=== PATIENT | female | born 1945 | race American Indian/Alaskan Native ===

== ENCOUNTER 2018-01-11 12:05 | Emergency (ER) | payer MEDICARE ==
[2018-01-11] MEDS ORDERED: APRESOLINE ONE (12:22)
--- NOTE | 2018-01-11 12:29 | Cat Scan Report ---
CT HEAD WITHOUT CONTRAST: HISTORY: Neurological deficit, stroke. TECHNIQUE: Sequential 2.5mm CT images. COMPARISON: none. FINDINGS: Cerebral Parenchyma: An approximate 3.2 cm acute hemorrhage is identified in the expected location of the left putamen. There is mild intraventricular extension into the left lateral ventricle but no hydrocephalus. Mild edema surrounds the hemorrhage which compresses the left lateral ventricle but no significant midline shift is present. Left to right midline shift measures 3-4 mm at the level of the frontal horns. No mass or large area of acute ischemia is appreciated. Cerebellum: Within normal limits. Brainstem: Within normal limits. Sella: Normal. Extra-axial spaces: Normal. Basal Cisterns: Normal. Calvarium: Normal. Sinuses: Normal. Mastoid Air Cells: Normal. Visualized Orbits: Normal. IMPRESSION: Acute left basal ganglia hemorrhage with extension to the ventricular system as described. These findings were discussed with Dr. Peralta in the emergency department at 1213 hrs.
--- NOTE | 2018-01-11 12:30 | Emergency Department Report ---
ED Neuro Deficit HPI - General Stated Complaint: POSSIBLE STROKE Time Seen by Provider: 01/11/18 12:17 - History of Present Illness Initial Comments: History obtained from EMS. 20 minutes prior to arrival, she was found by her altered. She had a right-sided facial droop with right arm/leg weakness. This never happened before. The patient does have a history of hypertension and has not taken her medicine a year ago. She is not on blood thinners. - Related Data Allergies/Adverse Reactions: Allergies Allergy/AdvReac Type Severity Reaction Status Date / Time No Known Allergies Allergy Unverified 01/11/18 12:06 ED Review of Systems ROS: Stated complaint: POSSIBLE STROKE Other details as noted in HPI Comment: Unobtainable due to pts medical conditions ED Past Medical Hx - Past Medical History Hx Hypertension: Yes ED Neuro Physical Exam - General Limitations: Altered Mental Status General appearance: alert Suspected Stroke: No - Head Head exam: Present: atraumatic, normocephalic - Eye Eye exam: Present: normal appearance - ENT ENT exam: Present: mucous membranes moist - Neck Neck exam: Present: normal inspection - Respiratory Respiratory exam: Present: normal lung sounds bilaterally. Absent: respiratory distress - Cardiovascular Cardiovascular Exam: Present: regular rate, normal rhythm. Absent: systolic murmur, diastolic murmur, rubs, gallop - GI/Abdominal GI/Abdominal exam: Present: soft, normal bowel sounds - Extremities Exam Extremities exam: Present: normal inspection - Back Exam Back exam: Present: normal inspection - Neurological Exam Neurological exam: Present: alert, other (GCS 10 ([id number]), head and eyes deviated to the left, withdraws from pain in all extremities, nonverbal. Unable to assess NIHSS given the patient cannot follow commands and is nonverbal.) - NIHSS 1a. Level of Consciousness: alert 1b. LOC Questions: answers no questions correctly 1c. LOC Commands: performs no tasks correctly 2. Best Gaze: forced deviation 4. Facial Palsy: partial paralysis 5b. Motor Arm Right: some gravity effort 5a. Motor Arm Left: some gravity effort 6a. Motor Leg Left: some gravity effort 6b. Motor Leg Right: some gravity effort 8. Sensory: severe/total sensory loss 9. Best Language: mute/global aphasia - Psychiatric Psychiatric exam: Present: normal affect - Skin Skin exam: Present: warm, dry, intact, normal color. Absent: rash ED Course Vital Signs 01/11/18 01/11/18 01/11/18 12:24 12:30 12:47 Temperature 97.8 F Pulse Rate 76 84 Respiratory 20 18 16 Rate Blood Pressure 222/109 Blood Pressure 222/109 200/95 [Right] O2 Sat by Pulse 96 98 98 Oximetry - EKG Data -: EKG Interpreted by Me EKG shows normal: sinus rhythm, axis, intervals, QRS complexes, ST-T waves Rate: normal - Medical Decision Making 72-year-old female has no posterior hypertension that presents with altered mental status. CT head imaging shows evidence of a left putamen hemorrhagic stroke with ventricular hemorrhage. Mild mass effect seen. This is according to the radiologist. GCS is 10 on presentation. Unable to assess NIH stroke scale given the patient cannot follow commands and is nonverbal. She was hypertensive with systolic blood pressure 220 on presentation. Patient was given hydralazine and started on Cardene gtt. patient will be transferred to and remain for further management. Critical Care Time: Yes Critical care time in (mins) excluding proc time.: 35 Critical care attestation.: If time is entered above; I have spent that time in minutes in the direct care of this critically ill patient, excluding procedure time. ED Disposition Clinical Impression: Hemorrhagic stroke Disposition: DC/TX-70 ANOTHER TYPE HLTHCARE Is pt being admited?: No Condition: Stable
[2018-01-11] MEDS ORDERED: APRESOLINE IV ONE (12:49)
[2018-01-11] MEDS: ZOFRAN ODT PO ONE ×2 (12:50→13:36)
[2018-01-11] MEDS ORDERED: ZOFRAN ONE (12:56)
[2018-01-11] MEDS ORDERED: CARDENE 50 MG in NACL 0.9% 250ML 230 ML IV SCH (13:00)
[2018-01-11 13:10] VITALS: BP 139/80
[2018-01-11] MEDS ORDERED: ZOFRAN IV ONE (13:13)
[2018-01-11 13:19] LABS: Basophils % (Auto) 0.9 % (0.0-1.8); Eosinophils # (Auto) 0.1 K/mm3 (0.0-0.4); Eosinophils % (Auto) 2.6 % (0.0-4.3); Hemoglobin 12.5 gm/dl (10.1-14.3); Lymphocytes # (Auto) 2.5 K/mm3 (1.2-5.4); Lymphocytes % (Auto) 45.1 % (13.4-35.0); Mean Corpuscular HGB Conc 33 % (30-34); Mean Corpuscular Hemoglobin 31 pg (28-32); Mean Corpuscular Volume 93 fl (79-97); Monocytes # (Auto) 0.4 K/mm3 (0.0-0.8); Monocytes % (Auto) 6.3 % (0.0-7.3); Platelet Count 196 K/mm3 (140-440); Red Blood Count 4.09 M/mm3 (3.65-5.03); Red Cell Distribution Width 13.3 % (13.2-15.2)
[2018-01-11] MEDS ORDERED: ATIVAN ONE (13:22)
[2018-01-11 13:23] LABS: BUN/Creatinine Ratio 18; Blood Urea Nitrogen 18 mg/dL (7-17); Calcium 9.1 mg/dL (8.4-10.2); Hemolysis Index 15
[2018-01-11] MEDS ORDERED: DECADRON ONE (13:23)
[2018-01-11] MEDS ORDERED: KEPPRA 1,000 MG/NS 0.75% 100ML 1,000 MG/100 ML BAG IV ONE ×2 (13:23→13:33)
[2018-01-11] MEDS ORDERED: ATIVAN IV ONE (13:33)
[2018-01-11] MEDS ORDERED: DECADRON IV ONE (13:33)
[2018-01-11 13:36] LABS: INR 0.94 (0.87-1.13)
[2018-01-11 13:37] LABS: Partial Thromboplastin Time 26.2 Sec. (24.2-36.6)
== END 2018-01-11 13:35 | disposition other institution (70) ==
LOC: ED 12:05
DX: I62.9 Nontraumatic intracranial hemorrhage, unspecified (principal); I10 Essential (primary) hypertension
CPT/HCPCS: 36415; 70450; 80048; 84484; 85025; 85610; 85670; 85730; 93005; 93010; 96374; 96375; 99291; J0360; J1100; J1953; J2060; J2405; J7050; 96365

== ENCOUNTER 2019-07-22 19:39 | Inpatient (IN) | payer MEDICARE ==
--- NOTE | 2019-07-22 20:07 | Emergency Department Report ---
ED Neuro Deficit HPI - General Chief Complaint: Neuro Symptoms/Deficit Stated Complaint: POSS STROKE Time Seen by Provider: 07/22/19 19:45 Source: EMS Mode of arrival: Stretcher Limitations: Altered Mental Status - History of Present Illness Initial Comments: [facility] TeleStroke Metrics: LKW: 1500 Door Time: 1938 [facility] Contacted: 1929 [facility] at Bedside: 1933 NIHSS: 1951 Decision on Alteplase: Not to give as her last known well time is greater than 4.5 hours prior to her presentation and also due to her history of prior left basal ganglia intracranial hemorrhage. Interventional Candidate: Not a candidate as her symptoms are not consistent wit h a large vessel proximal occlusion. Chief Complaint: Altered mental status HPI: Asked to see this patient in emergent telemedicine consultation utilizing interactive audio and video technologies. ?Consultation was performed with assistance of ancillary / medical staff at bedside. Verbal consent to perform the examination with telemedicine was obtained. Patient agreed to proceed with the consultation for acute stroke protocol. 74-year-old -[place] female who comes to the emergency room by EMS as a stroke alert for changes in her speech and altered mental status. Patient with a history of a left basal ganglia intracranial hemorrhage in January 2018 due to uncontrolled hypertension. Blood pressure was 222/119 at the time and she was not taking her blood pressure medications. EMS reports that the patient has chronic right hemiparesis since that time. No family is currently at bedside. Apparently the patient was last known well by family at 3 PM today. They then found the patient with more slurred speech and slowness in his speech. She was also confused. She is oriented x1 to person only. Patient is currently able to follow commands. Patient is significantly weak still on the right side stemming from her previous hemorrhage. She is able to move the left side fine now. Head CT was negative. PMH: Hypertension and prior left basal ganglia hemorrhage in January 2018 with chronic right hemiparesis SOC: Negative x3. Patient is . FMH: Negative for stroke. ROS: 13 point review systems were reviewed with the patient, and are all negative with the exception of the aforementioned in the history of present illness. VS: Blood pressure 140/70, pulse 70, oxygen saturation 90%, weight 56.5 kg Exam: Patient is in no apparent distress. Patient appears as stated age. No obvious acute respiratory or cardiac distress. Patient is well groomed and well-nourished. 1a- LOC: Keenly responsive - 0 1b- LOC questions: Answers 1 question correctly - 1 1c- LOC commands- Performs both tasks correctly- 0 2- Gaze: Normal; no gaze paresis or gaze deviation - 0 3- Visual Avila: normal, no Visual field deficit - 0 4- Facial movements: right facial palsy - 2 5- Upper limb motor right arm drift - 4 6- Lower limb motor right leg drift - 4 7- Limb Coordination: absent ataxia - 0 8- Sensory: no sensory loss - 0 9- Language - No aphasia - 0 10- Speech - Mild dysarthria - 1 11- Neglect / Extinction - none found - 0 NIHSS score: 12 Diagnostic Data: CT of the head showed no acute intracranial process. Blood glucose 68 Medical Data Reviewed: 1.Data?reviewed include clinical labs, radiology,?and medical tests; 2.Tests?results discussed w/performing or interpreting physician; 3.Obtaining/reviewing old medical records; 4.Obtaining?case history from another source; 5.Independent?review of image, tracing, or specimen. Medical Decision Making: - Extensive number of diagnosis or management options are considered below. - Extensive amount of complex data reviewed. - High risk of complication and/or morbidity or mortality are associated with differential diagnostic considerations below. - There may be?uncertain?outcome and increased probability of prolonged functional impairment or high probability of severe prolonged functional impairment associated with some of these differential diagnosis. Differential Diagnosis for Stroke: 1.?Cardioembolic?stroke 2. Small vessel disease/lacune 3. Thromboembolic, [id number] mechanism 4.?Hypercoagulable?state-related infarct 5. Transient ischemic attack 6. Thrombotic mechanism, large artery disease Assessment: 1. Altered mental status 2. Prior left basal ganglia hypertensive hemorrhage in January 2018 with chronic r ight hemiparesis 3. Hypertension Recommendations: Patient can be admitted to the hospital for further work-up of her symptoms. Metabolic and infectious work-up per primary team. Can check MRI brain without contrast to rule out any acute intracranial process. Consult local neurology team to assist with evaluation and management. Consult PT, OT, and ST. Continue supportive care. Thank you for allowing [facility] to participate in the care of your patient. Please call me, Dr. Conley, with any questions at [phone]. Case discussed with the ER staff and Dr. Prince. Critical Care notation: I was called to see this critical patient emergently. I personally evaluated this critical patient for acute stroke evaluation, and determining their eligibility for IV Alteplase and interventional therapies. I have spent approximately 20 minutes with the patient, including time at bedside, time discussing the case with other physicians, reviewing plan of care, and time independently reviewing the records and scans. - Related Data Allergies/Adverse Reactions: Allergies Allergy/AdvReac Type Severity Reaction Status Date / Time No Known Allergies Allergy Verified 07/22/19 20:06 ED Review of Systems ROS: Stated complaint: POSS STROKE Other details as noted in HPI ED Past Medical Hx - Past Medical History Previous Medical History?: Yes Hx Hypertension: Yes Hx CVA: Yes (2016) Hx Heart Attack/AMI: No Hx Congestive Heart Failure: No Hx Diabetes: No Hx Deep Vein Thrombosis: No Hx Pulmonary Embolism: No Hx GERD: No Hx Liver Disease: No Hx Renal Disease: No Hx Sickle Cell Disease: No Hx Arthritis: No Hx Headaches / Migraines: No Hx Seizures: Yes Hx Kidney Stones: No Hx Psychiatric Treatment: No Hx Asthma: No Hx COPD: No Hx Tuberculosis: No Hx Dementia: No Hx HIV: No - Surgical History Hx Coronary Stent: No Hx Open Heart Surgery: No Hx Pacemaker: No Hx Internal Defibrillator: No Hx Cholecystectomy: No Hx Appendectomy: No Hx Breast Surgery: No - Social History Smoking Status: Unknown if ever smoked ED Neuro Physical Exam - General Limitations: Altered Mental Status Suspected Stroke: No ED Course Vital Signs 07/22/19 19:40 Temperature 98 F Pulse Rate 72 Respiratory 14 Rate Blood Pressure 137/88 [Right] O2 Sat by Pulse 98 Oximetry Critical care attestation.: If time is entered above; I have spent that time in minutes in the direct care of this critically ill patient, excluding procedure time. ED Disposition Clinical Impression: Altered mental state Disposition: 09 OP ADMIT IP TO THIS HOSP Is pt being admited?: Yes Does the pt Need Aspirin: No Condition: Stable
[2019-07-22 20:10] LABS: Basophils # (Auto) 0.1 K/mm3 (0.0-0.1); Eosinophils # (Auto) 0.2 K/mm3 (0.0-0.4); Hematocrit 39.4 % (30.3-42.9); Hemoglobin 13.6 gm/dl (10.1-14.3); Lymphocytes # (Auto) 4.2 K/mm3 (1.2-5.4); Mean Corpuscular HGB Conc 34 % (30-34); Mean Corpuscular Volume 93 fl (79-97); Monocytes # (Auto) 0.5 K/mm3 (0.0-0.8); Monocytes % (Auto) 5.6 % (0.0-7.3); Platelet Count 211 K/mm3 (140-440); Red Blood Count 4.24 M/mm3 (3.65-5.03); Red Cell Distribution Width 13.1 % (13.2-15.2)
--- NOTE | 2019-07-22 20:10 | Emergency Department Report ---
ED Neuro Deficit HPI - General Stated Complaint: POSS STROKE Time Seen by Provider: 07/22/19 19:45 Source: patient, family (friends), EMS Mode of arrival: Stretcher Limitations: Physical Limitation - History of Present Illness Initial Comments: 74-year-old female the past medical history left basal ganglia intracranial hemorrhage in 2018 causing chronic right-sided weakness, right facial droop, slurred speech, hypertension, history of seizures presents to Hospital with worsening slurred speech and right-sided weakness. Patient and is at the bedside feel like her speech is worse and she has worsening right-sided facial droop. Patient does not feel like her right-sided weakness is increased. Triage states that pt had left sided weakness. Triage nurse states EMS told them that she had left sided weakness at scene. pt does not have left sided weakness in ed. She does not have any pain. The friend saw patient with the symptoms at 6 PM and patient's thinks that her symptoms started at 3 PM. She also has some swelling to her gums on the right mandible gingiva and is scheduled to see a dentist. - Related Data Home Medications: Home Medications Medication Instructions Recorded Confirmed Last Taken Amantadine [Symmetrel] 100 mg PO DAILY 07/22/19 07/22/19 Unknown Amlodipine Besylate [Norvasc] 5 mg PO DAILY 07/22/19 07/22/19 Unknown AtorvaSTATin [Lipitor] 20 mg PO QHS 07/22/19 07/22/19 Unknown Donepezil [Aricept] 1 tab PO DAILY 07/22/19 07/22/19 Unknown Gabapentin [Neurontin] 100 mg PO Q8HR 07/22/19 07/22/19 Unknown levETIRAcetam [Keppra TAB] 1,000 mg PO BID 07/22/19 07/22/19 Unknown Allergies/Adverse Reactions: Allergies Allergy/AdvReac Type Severity Reaction Status Date / Time No Known Allergies Allergy Verified 07/22/19 20:06 ED Review of Systems ROS: Stated complaint: POSS STROKE Other details as noted in HPI Comment: All other systems reviewed and negative ED Past Medical Hx - Past Medical History Hx Hypertension: Yes Hx CVA: No Hx Heart Attack/AMI: No Hx Congestive Heart Failure: No Hx Diabetes: No Hx Deep Vein Thrombosis: No Hx Pulmonary Embolism: No Hx GERD: No Hx Liver Disease: No Hx Renal Disease: No Hx Sickle Cell Disease: No Hx Arthritis: No Hx Headaches / Migraines: No Hx Seizures: No Hx Kidney Stones: No Hx Psychiatric Treatment: No Hx Asthma: No Hx COPD: No Hx Tuberculosis: No Hx Dementia: No Hx HIV: No - Surgical History Hx Coronary Stent: No Hx Open Heart Surgery: No Hx Pacemaker: No Hx Internal Defibrillator: No Hx Cholecystectomy: No Hx Appendectomy: No Hx Breast Surgery: No - Social History Smoking Status: Unknown if ever smoked Substance Use Type: None - Medications Home Medications: Home Medications Medication Instructions Recorded Confirmed Last Taken Type Amantadine [Symmetrel] 100 mg PO DAILY 07/22/19 07/22/19 Unknown History Amlodipine Besylate [Norvasc] 5 mg PO DAILY 07/22/19 07/22/19 Unknown History AtorvaSTATin [Lipitor] 20 mg PO QHS 07/22/19 07/22/19 Unknown History Donepezil [Aricept] 1 tab PO DAILY 07/22/19 07/22/19 Unknown History Gabapentin [Neurontin] 100 mg PO Q8HR 07/22/19 07/22/19 Unknown History levETIRAcetam [Keppra TAB] 1,000 mg PO BID 07/22/19 07/22/19 Unknown History ED Neuro Physical Exam - General Suspected Stroke: Yes - NIHSS Assessment Interval: Baseline 1a. Level of Consciousness: alert/keenly responsive 1b. LOC Questions: answers 1 question correctly 1c. LOC Commands: performs tasks correctly 2. Best Gaze: normal 3. Visual: no visual loss 4. Facial Palsy: partial paralysis 5b. Motor Arm Right: no movement 5a. Motor Arm Left: no drift 6a. Motor Leg Left: no drift 6b. Motor Leg Right: no movement 7. Limb Ataxia: absent 8. Sensory: normal 9. Best Language: no aphasia 10. Dysarthria: mild/moderate dysarthria 11. Extinction/Inattention: no abnormality Total Score: 12 Stroke Severity: Moderate Stroke - Other Other exam information: General: No acute distress Head: Atraumatic Eyes: normal appearance ENT: Moist mucous membranes patient has to periapical swelling at the mandible gingiva around both at the canine and first premolar Neck: Normal appearance, no midline tenderness Chest: Clear to auscultation bilaterally CV: Regular rate and rhythm Abdomen: Soft, normal bowel sounds, nontender, nondistended, no rebound or guarding Back: Normal inspection Extremity: Normal inspection infection, full range of motion Neuro: see [facility] Psych: Appropriate behavior Skin: No rash ED Course Vital Signs 07/22/19 07/22/19 07/22/19 19:40 20:30 21:00 Temperature 98 F Pulse Rate 72 63 66 Respiratory 14 16 16 Rate Blood Pressure Blood Pressure 137/88 133/79 150/69 [Right] O2 Sat by Pulse 98 98 98 Oximetry 07/22/19 07/22/19 07/22/19 21:30 21:41 21:45 Temperature Pulse Rate 67 83 Respiratory 16 17 12 Rate Blood Pressure 132/79 Blood Pressure 133/80 [Right] O2 Sat by Pulse 98 97 99 Oximetry 07/22/19 22:00 Temperature Pulse Rate 64 Respiratory 12 Rate Blood Pressure 146/87 Blood Pressure [Right] O2 Sat by Pulse 98 Oximetry - Consultations Consultation #1: 07/22/19 see neuro consult note - Lab Data Result diagrams: 07/22/19 20:00 07/22/19 20:00 Lab Results 07/22/19 07/22/19 07/22/19 Range/Units 20:00 20:00 20:00 WBC 8.0 (4.5-11.0) K/mm3 RBC 4.24 (3.65-5.03) M/mm3 Hgb 13.6 (10.1-14.3) gm/dl Hct 39.4 (30.3-42.9) % MCV 93 (79-97) fl MCH 32 (28-32) pg MCHC 34 (30-34) % RDW 13.1 L (13.2-15.2) % Plt Count 211 (140-440) K/mm3 Lymph % (Auto) 52.0 H (13.4-35.0) % [place] % (Auto) 5.6 (0.0-7.3) % Eos % (Auto) 2.0 (0.0-4.3) % Baso % (Auto) 1.0 (0.0-1.8) % Lymph # 4.2 (1.2-5.4) K/mm3 [place] # 0.5 (0.0-0.8) K/mm3 Eos # 0.2 (0.0-0.4) K/mm3 Baso # 0.1 (0.0-0.1) K/mm3 Seg Neutrophils % 39.4 L (40.0-70.0) % Seg Neutrophils # 3.2 (1.8-7.7) K/mm3 PT 13.5 (12.2-14.9) Sec. INR 1.02 (0.87-1.13) APTT 26.6 (24.2-36.6) Sec. Sodium 143 (137-145) mmol/L Potassium 3.8 (3.6-5.0) mmol/L Chloride 106.8 (98-107) mmol/L Carbon Dioxide 22 (22-30) mmol/L Anion Gap 18 mmol/L BUN 12 (7-17) mg/dL Creatinine 0.7 (0.7-1.2) mg/dL Estimated GFR > 60 ml/min BUN/Creatinine Ratio 17 % Glucose 79 (65-100) mg/dL POC Glucose (70-105) Calcium 9.2 (8.4-10.2) mg/dL Troponin T < 0.010 (0.00-0.029) ng/mL 07/22/19 Range/Units 20:01 WBC (4.5-11.0) K/mm3 RBC (3.65-5.03) M/mm3 Hgb (10.1-14.3) gm/dl Hct (30.3-42.9) % MCV (79-97) fl MCH (28-32) pg MCHC (30-34) % RDW (13.2-15.2) % Plt Count (140-440) K/mm3 Lymph % (Auto) (13.4-35.0) % [place] % (Auto) (0.0-7.3) % Eos % (Auto) (0.0-4.3) % Baso % (Auto) (0.0-1.8) % Lymph # (1.2-5.4) K/mm3 [place] # (0.0-0.8) K/mm3 Eos # (0.0-0.4) K/mm3 Baso # (0.0-0.1) K/mm3 Seg Neutrophils % (40.0-70.0) % Seg Neutrophils # (1.8-7.7) K/mm3 PT (12.2-14.9) Sec. INR (0.87-1.13) APTT (24.2-36.6) Sec. Sodium (137-145) mmol/L Potassium (3.6-5.0) mmol/L Chloride (98-107) mmol/L Carbon Dioxide (22-30) mmol/L Anion Gap mmol/L BUN (7-17) mg/dL Creatinine (0.7-1.2) mg/dL Estimated GFR ml/min BUN/Creatinine Ratio % Glucose (65-100) mg/dL POC Glucose 68 L (70-105) Calcium (8.4-10.2) mg/dL Troponin T (0.00-0.029) ng/mL - EKG Data -: EKG Interpreted by Me EKG shows normal: sinus rhythm, ST-T waves (inf and lat inf t wave inv) Rate: normal - Radiology Data Radiology results: report reviewed CT BRAIN: 07/22/2019 INDICATION / CLINICAL INFORMATION: neuro deficits <6hrs or sx present upon awakening. COMPARISON: 01/11/2018 FINDINGS: BRAIN/INTRACRANIAL STRUCTURES: Unenhanced CT images of the brain were obtained and compared to the prior exam from 01/11/2018. The previously seen left parenchymal hemorrhage has resolved, now with a prominent area of encephalomalacia present in the left basal ganglia and centrum semiovale. There is no CT evidence of acute abnormality at this time. Underlying diffuse cerebral atrophy is present, which has progressed somewhat when compared to the prior exam. There is no CT evidence of acute hemorrhage or mass. There are no abnormal extra-axial fluid collecti ons. Prominent atherosclerotic vascular calcifications are noted. EXTRACRANIAL STRUCTURES: Unremarkable. IMPRESSION: No evidence of acute abnormality. Left sided subcortical encephalomalacia, corresponding to an area of acute hemorrhage seen on the prior CT from 01/11/2018. All CT scans at this location are performed using dose reduction to ALARA by means of automated exposure control. Discussed with Dr. Prince in the emergency department at 1915 hours - Medical Decision Making + worsening neuro deficts not tpa candiate pt passed swallow screen, asa provided see neuro consult pt to be admitted for futher workup - Differential Diagnosis cva, tia, encephalopathy - Thrombolytic Inclusion/Exclusion Thrombolytic Exclusion Criteria: Symptom Onset > 3 Hours Thrombolytic Contraindications: Hx of ICH/AVM/Aneurysms Critical Care Time: No Critical care attestation.: If time is entered above; I have spent that time in minutes in the direct care of this critically ill patient, excluding procedure time. ED Disposition Clinical Impression: Slurred speech, History of hemorrhagic cerebrovascular accident (CVA) with residual deficit Disposition: DC-09 OP ADMIT IP TO THIS HOSP Is pt being admited?: Yes Condition: Stable Time of Disposition: 21:13 ([place])
[2019-07-22 20:20] LABS: INR 1.02 (0.87-1.13); Partial Thromboplastin Time 26.6 Sec. (24.2-36.6)
--- NOTE | 2019-07-22 20:20 | Cat Scan Report ---
CT BRAIN: 07/22/2019 INDICATION / CLINICAL INFORMATION: neuro deficits <6hrs or sx present upon awakening. COMPARISON: 01/11/2018 FINDINGS: BRAIN/INTRACRANIAL STRUCTURES: Unenhanced CT images of the brain were obtained and compared to the pr ior exam from 01/11/2018. The previously seen left parenchymal hemorrhage has resolved, now with a prom inent area of encephalomalacia present in the left basal ganglia and centrum semiovale. There is no CT evidence of acute abnormality at this time. Underlying diffuse cerebral atrophy is pre sent, which has progressed somewhat when compared to the prior exam. There is no CT evidence of acute hemorrhage or mass. There are no abnormal extra-axial fluid collecti ons. Prominent atherosclerotic vascular calcifications are noted. EXTRACRANIAL STRUCTURES: Unremarkable. IMPRESSION: No evidence of acute abnormality. Left sided subcortical encephalomalacia, corresponding to an area of acute hemorrhage seen on the prior CT from 01/11/2018. All CT scans at this location are performed using dose reduction to ALARA by means of automated expos ure control. Discussed with Dr. Prince in the emergency department at 1915 hours Signer Name: Ole Berkowitz MD Signed: 07/22/2019 8:16 PM Workstation Name: [id number]
[2019-07-22 20:21] LABS: BUN/Creatinine Ratio 17; Blood Urea Nitrogen 12 mg/dL (7-17); Calcium 9.2 mg/dL (8.4-10.2); Hemolysis Index 48
[2019-07-22] MEDS ORDERED: ASPIRIN 325 MG TAB PO ONE (21:13)
[2019-07-22] MEDS ORDERED: PROMETHAZINE 25 MG RECT SUPP PR PRN (22:07)
[2019-07-22] MEDS ORDERED: ONDANSETRON 4 MG/2 ML INJ IV PRN ×2 (22:07)
[2019-07-22] MEDS ORDERED: ACETAMINOPHEN 325 MG TAB PO PRN ×2 (22:07)
[2019-07-22] MEDS ORDERED: METOCLOPRAMIDE 10 MG TAB PO PRN (22:07)
[2019-07-22] MEDS ORDERED: MORPHINE 2 MG/1 ML INJ IV PRN (22:07)
[2019-07-22] MEDS ORDERED: MAGNESIUM HYDROXIDE (MOM) ORAL LIQD UDC PO PRN ×2 (22:07)
--- NOTE | 2019-07-23 01:36 | History and Physical Report ---
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 Family members who were by the bedside indicates patient speech appeared more slurred today than usual. She was said to have had some left- sided weakness prior to reporting to the emergency room however they seem to have resolved upon arrival in the emergency room. She denies any fever or chills, no nausea vomiting but has had some mild headache. Upon arrival in the emergency room a CT scan of the head did not reveal new findings. She has been admitted to rule out a new CVA Past History Past Medical History: hypertension, stroke Social history: no significant social history Family history: no significant family history Medications and Allergies Allergies Allergy/AdvReac Type Severity Reaction Status Date / Time No Known Allergies Allergy Verified 07/22/19 20:06 Home Medications Medication Instructions Recorded Confirmed Last Taken Type Amantadine [Symmetrel] 100 mg PO DAILY 07/22/19 07/22/19 Unknown History Amlodipine Besylate [Norvasc] 5 mg PO DAILY 07/22/19 07/22/19 Unknown History AtorvaSTATin [Lipitor] 20 mg PO QHS 07/22/19 07/22/19 Unknown History Donepezil [Aricept] 1 tab PO DAILY 07/22/19 07/22/19 Unknown History Gabapentin [Neurontin] 100 mg PO Q8HR 07/22/19 07/22/19 Unknown History levETIRAcetam [Keppra TAB] 1,000 mg PO BID 07/22/19 07/22/19 Unknown History Active Meds: Active Medications Acetaminophen (Tylenol) 650 mg PO Q4H PRN PRN Reason: Pain, Mild (1-3) Aspirin (Aspirin) 325 mg PO QDAY AQUILES Bisacodyl (Dulcolax) 10 mg UT QDAY PRN PRN Reason: Constipation Magnesium Hydroxide (Milk Of Magnesia) 30 ml PO Q4H PRN PRN Reason: Constipation Metoclopramide HCl (Reglan) 10 mg PO Q6H PRN PRN Reason: Nausea And Vomiting Morphine Sulfate (Morphine) 2 mg IV Q4H PRN PRN Reason: Pain, Moderate (4-6) Ondansetron HCl (Zofran) 4 mg IV Q8H PRN PRN Reason: Nausea And Vomiting Promethazine HCl (Phenergan) 25 mg UT Q6H PRN PRN Reason: Nausea And Vomiting Sodium Chloride (Sodium Chloride Flush Syringe 10 Ml) 10 ml IV BID AQUILES Sodium Chloride (Sodium Chloride Flush Syringe 10 Ml) 10 ml IV PRN PRN PRN Reason: LINE FLUSH Review of Systems Neurological: weakness (Right-sided weakness) Exam - Constitutional Vitals: Temp Pulse Resp BP Pulse Ox 98 F 67 17 130/85 98 07/22/19 19:40 07/23/19 00:00 07/22/19 22:30 07/22/19 22:30 07/22/19 22:30 General appearance: Present: no acute distress, well-nourished, other (Right facial droop) - EENT Eyes: Present: PERRL, EOM intact ENT: hearing intact, clear oral mucosa, dentition normal - Neck Neck: Present: supple, normal ROM - Respiratory Respiratory effort: normal Respiratory: bilateral: CTA - Cardiovascular Rhythm: regular Heart Sounds: Present: S1 & S2 - Extremities Extremities: no ischemia, pulses intact, pulses symmetrical, No edema, Full ROM Peripheral Pulses: within normal limits - Abdominal General gastrointestinal: Present: soft, non-tender, non-distended - Integumentary Integumentary: Present: clear, warm, dry - Musculoskeletal Musculoskeletal: right sided weakness - Psychiatric Psychiatric: appropriate mood/affect, intact judgment & insight, cooperative - Neurologic Neurologic: other (Right hemiparesis) Results - Labs CBC & Chem 7: 07/22/19 20:00 07/22/19 20:00 Labs: Abnormal lab results 07/22/19 07/22/19 Range/Units 20:00 20:01 RDW 13.1 L (13.2-15.2) % Lymph % (Auto) 52.0 H (13.4-35.0) % Seg Neutrophils % 39.4 L (40.0-70.0) % POC Glucose 68 L (70-105) Assessment and Plan - Patient Problems (1) CVA (cerebral vascular accident) Current Visit: Yes Status: Acute Plan to address problem: Patient will be monitored on telemetry. Will place on daily aspirin and monitor neurological status. Patient has known history of hemorrhagic stroke in 2018 with right hemiparesis and some facial droop We will schedule patient for carotid Doppler and also MRI of the brain. We will request neurology evaluation and recommendation. (2) Hypertension Current Visit: Yes Status: Acute Plan to address problem: Blood pressure stable. We will continue routine home medications and monitor vital signs closely. (3) DVT prophylaxis Current Visit: Yes Status: Acute Plan to address problem: Patient placed on subcutaneous heparin (4) Full code status Current Visit: Yes Status: Acute
[2019-07-23 05:18] LABS: Basophils # (Auto) 0.1 K/mm3 (0.0-0.1); Basophils % (Auto) 1.1 % (0.0-1.8); Eosinophils # (Auto) 0.1 K/mm3 (0.0-0.4); Hematocrit 36.9 % (30.3-42.9); Hemoglobin 12.8 gm/dl (10.1-14.3); Lymphocytes # (Auto) 2.9 K/mm3 (1.2-5.4); Lymphocytes % (Auto) 45.3 % (13.4-35.0); Mean Corpuscular HGB Conc 35 % (30-34); Mean Corpuscular Volume 92 fl (79-97); Monocytes # (Auto) 0.3 K/mm3 (0.0-0.8); Monocytes % (Auto) 5.2 % (0.0-7.3); Platelet Count 217 K/mm3 (140-440); Red Blood Count 4.03 M/mm3 (3.65-5.03); Red Cell Distribution Width 13.2 % (13.2-15.2)
[2019-07-23 05:32] LABS: Partial Thromboplastin Time 28.8 Sec. (24.2-36.6)
[2019-07-23 05:35] LABS: INR 0.86 (0.87-1.13)
[2019-07-23] MEDS: GABAPENTIN 100 MG CAP PO SCH ×3 (05:57→22:50)
[2019-07-23] MEDS: HEPARIN 5,000 UNIT/1 ML VIAL SUB-Q SCH ×3 (05:57→22:50)
[2019-07-23 06:21] LABS: BUN/Creatinine Ratio 16; Blood Urea Nitrogen 11 mg/dL (7-17); Calcium 9.2 mg/dL (8.4-10.2); Chol/HDL Ratio 2.04 %; HDL Cholesterol 72 mg/dL (40-59); Hemolysis Index 9; LDL Cholesterol,Direct 69 mg/dL (50-130)
[2019-07-23] MEDS: levETIRAcetam 500 MG TAB PO SCH ×2 (10:11→22:50)
[2019-07-23] MEDS: ASPIRIN 325 MG TAB PO SCH (10:11)
[2019-07-23] MEDS: DONEPEZIL 10 MG TAB PO SCH (10:12)
[2019-07-23] MEDS: amLODIPine 5 MG TAB PO SCH (10:12)
--- NOTE | 2019-07-23 12:20 | Progress Note ---
Subjective Date of service: 07/23/19 Interval history: patient 's CT evaluated and went over the scan rather large and severe left hemisphere chroic infarct with severe volume loss from massive stroke likely massive MCA stroke await MRI the ED nores were reviewed Objective - Vital Sign Vital Signs - 12hr 07/23/19 07/23/19 07/23/19 01:47 04:41 08:48 Temperature 98.3 F 98.4 F Pulse Rate 60 81 Pulse Rate [ 64 Apical] Respiratory 18 18 18 Rate Blood Pressure 132/78 113/80 O2 Sat by Pulse 97 95 Oximetry 07/23/19 10:12 Temperature Pulse Rate 81 Pulse Rate [ Apical] Respiratory Rate Blood Pressure 113/80 O2 Sat by Pulse Oximetry - Laboratory Findings CBC and BMP: 07/23/19 04:34 07/23/19 04:34 Abnormal Lab Findings: Abnormal Labs 07/22/19 07/22/19 07/23/19 20:00 20:01 04:34 MCHC 35 H RDW 13.1 L Lymph % (Auto) 52.0 H 45.3 H Seg Neutrophils % 39.4 L PT INR POC Glucose 68 L HDL Cholesterol 07/23/19 07/23/19 04:34 04:34 MCHC RDW Lymph % (Auto) Seg Neutrophils % PT 11.8 L INR 0.86 L POC Glucose HDL Cholesterol 72 H
--- NOTE | 2019-07-23 13:12 | Progress Note ---
Assessment and Plan Assessment and plan: 74-year-old -[place] female with known history of hemorrhagic stroke about a year ago with residual right-sided weakness was brought into the emergency room today for speech difficulty and what appeared to be left-sided weakness . Family members who were by the bedside indicates patient speech a ppeared more slurred today than usual. She was said to have had some left-sided weakness prior to reporting to the emergency room however they seem to have resolved upon arrival in the emergency room. She denies any fever or chills, no nausea vomiting but has had some mild headache. Upon arrival in the emergency room a CT scan of the head did not reveal new findings. She has been admitted to rule out a new CVA (1) CVA (cerebral vascular accident) Current Visit: Yes Status: Acute Plan to address problem: Continue supportive care right facial droop appears to have improved Dysarthria still persist Resume aspirin and statin therapy await neurology evaluation monitor neurological status. PT and OT Patient has known history of hemorrhagic stroke in 2018 with right hemiparesis and some facial droop We will schedule patient for carotid Doppler and also MRI of the brain. We will request neurology evaluation and recommendation. (2) Hypertension Current Visit: Yes Status: Acute Plan to address problem: Blood pressure stable. We will continue routine home medications and monitor vital signs closely. (3) DVT prophylaxis Current Visit: Yes Status: Acute Plan to address problem: Patient placed on subcutaneous heparin (4) Full code status Current Visit: Yes Status: Acute History Interval history: Patient seen and examined, no acute distress. Tolerating PO intake. Per rn progressive care patient is none ambulatory but pivots from chair to chair, she has been noting to have contracture on the right upper ext more than normal. Patient still has dysphgia, although she has dysphasia at baseline the caregiver states that the dysphasia at this time is still not at her baseline. Hospitalist Physical - Physical exam Narrative exam: VITAL SIGNS: Reviewed. GENERAL: The patient appears normally developed, Vital signs as documented. HEAD: No signs of head trauma. EYES: Pupils are equal. Extraocular motions intact. EARS: Hearing grossly intact. MOUTH: Oropharynx is normal. NECK: No adenopathy, no JVD. CHEST: Chest with clear breath sounds bilaterally. No wheezes, rales, or rhonchi. CARDIAC: Regular rate and rhythm. S1 and S2, without murmurs, gallops, or rubs. VASCULAR: No Edema. Peripheral pulses normal and equal in all extremities. ABDOMEN: Soft, non tender and non distended. No rebound or guarding, and no masses palpated. Bowel Sounds normal. MUSCULOSKELETAL: Limited range of motion of all major joints. Extremities without clubbing, cyanosis or edema. NEUROLOGIC EXAM: Alert and oriented x 3 No focal sensory or strength deficits. Dysarthria. Follows commands. PSYCHIATRIC: Mood normal. SKIN: detial exam as documented in skin assessment - Constitutional Vitals: Temp Pulse Resp BP Pulse Ox 98.4 F 81 18 113/80 95 07/23/19 08:48 07/23/19 10:12 07/23/19 08:48 07/23/19 10:12 07/23/19 08:48 General appearance: Present: no acute distress, well-nourished, other (Right facial droop) Results - Labs CBC & Chem 7: 07/23/19 04:34 07/23/19 04:34 Labs: Laboratory Last Values WBC 6.5 K/mm3 (4.5-11.0) 07/23/19 04:34 RBC 4.03 M/mm3 (3.65-5.03) 07/23/19 04:34 Hgb 12.8 gm/dl (10.1-14.3) 07/23/19 04:34 Hct 36.9 % (30.3-42.9) 07/23/19 04:34 MCV 92 fl (79-97) 07/23/19 04:34 MCH 32 pg (28-32) 07/23/19 04:34 MCHC 35 % (30-34) H 07/23/19 04:34 RDW 13.2 % (13.2-15.2) 07/23/19 04:34 Plt Count 217 K/mm3 (140-440) 07/23/19 04:34 Lymph % (Auto) 45.3 % (13.4-35.0) H 07/23/19 04:34 [place] % (Auto) 5.2 % (0.0-7.3) 07/23/19 04:34 Eos % (Auto) 2.0 % (0.0-4.3) 07/23/19 04:34 Baso % (Auto) 1.1 % (0.0-1.8) 07/23/19 04:34 Lymph # 2.9 K/mm3 (1.2-5.4) 07/23/19 04:34 [place] # 0.3 K/mm3 (0.0-0.8) 07/23/19 04:34 Eos # 0.1 K/mm3 (0.0-0.4) 07/23/19 04:34 Baso # 0.1 K/mm3 (0.0-0.1) 07/23/19 04:34 Seg Neutrophils % 46.4 % (40.0-70.0) 07/23/19 04:34 Seg Neutrophils # 3.0 K/mm3 (1.8-7.7) 07/23/19 04:34 PT 11.8 Sec. (12.2-14.9) L 07/23/19 04:34 INR 0.86 (0.87-1.13) L 07/23/19 04:34 APTT 28.8 Sec. (24.2-36.6) 07/23/19 04:34 Thrombin Time 16.0 Sec. (15.1-19.6) 07/22/19 20:00 Sodium 144 mmol/L (137-145) 07/23/19 04:34 Potassium 3.6 mmol/L (3.6-5.0) 07/23/19 04:34 Chloride 105.3 mmol/L (98-107) 07/23/19 04:34 Carbon Dioxide 22 mmol/L (22-30) 07/23/19 04:34 Anion Gap 20 mmol/L 07/23/19 04:34 BUN 11 mg/dL (7-17) 07/23/19 04:34 Creatinine 0.7 mg/dL (0.7-1.2) 07/23/19 04:34 Estimated GFR > 60 ml/min 07/23/19 04:34 BUN/Creatinine Ratio 16 % 07/23/19 04:34 Glucose 87 mg/dL (65-100) 07/23/19 04:34 POC Glucose 68 (70-105) L 07/22/19 20:01 Calcium 9.2 mg/dL (8.4-10.2) 07/23/19 04:34 Troponin T < 0.010 ng/mL (0.00-0.029) 07/22/19 20:00 Triglycerides 77 mg/dL (2-149) 07/23/19 04:34 Cholesterol 147 mg/dL (50-199) 07/23/19 04:34 LDL Cholesterol Direct 69 mg/dL (50-130) 07/23/19 04:34 HDL Cholesterol 72 mg/dL (40-59) H 07/23/19 04:34 Cholesterol/HDL Ratio 2.04 % 07/23/19 04:34 Active Medications - Current Medications Current Medications: Generic Name Dose Route Start Last Admin Trade Name Freq PRN Reason Stop Dose Admin Acetaminophen 650 mg 07/22/19 22:07 Tylenol PO Q4H PRN Pain, Mild (1-3) Amantadine HCl 100 mg 07/23/19 10:00 07/23/19 12:20 Symmetrel PO 100 mg DAILY AQUILES Administration Amlodipine Besylate 5 mg 07/23/19 10:00 07/23/19 10:12 Amlodipine PO 5 mg DAILY AQUILES Administration Aspirin 325 mg 07/23/19 10:00 07/23/19 10:11 Aspirin PO 325 mg QDAY AQUILES Administration Atorvastatin Calcium 40 mg 07/23/19 22:00 Lipitor PO QHS AQUILES Bisacodyl 10 mg 07/22/19 22:07 Dulcolax ME QDAY PRN Constipation Donepezil HCl 10 mg 07/23/19 10:00 07/23/19 10:12 Aricept PO 10 mg DAILY AQUILES Administration Gabapentin 100 mg 07/23/19 06:00 07/23/19 05:57 Gabapentin PO 100 mg Q8HR AQUILES Administration Heparin Sodium (Porcine) 5,000 unit 07/23/19 06:00 07/23/19 05:57 Heparin SUB-Q 5,000 unit Q8HR AQUILES Administration Levetiracetam 1,000 mg 07/23/19 10:00 07/23/19 10:11 Keppra PO 1,000 mg BID AQUILES Administration Magnesium Hydroxide 30 ml 07/22/19 22:07 Milk Of Magnesia PO Q4H PRN Constipation Metoclopramide HCl 10 mg 07/22/19 22:07 Reglan PO Q6H PRN Nausea And Vomiting Morphine Sulfate 2 mg 07/22/19 22:07 Morphine IV Q4H PRN Pain, Moderate (4-6) Ondansetron HCl 4 mg 07/22/19 22:07 Zofran IV Q8H PRN Nausea And Vomiting Promethazine HCl 25 mg 07/22/19 22:07 Phenergan ME Q6H PRN Nausea And Vomiting Sodium Chloride 10 ml 07/23/19 10:00 07/23/19 10:11 Sodium Chloride Flush Syringe 10 Ml IV 10 ml BID AQUILES Administration Sodium Chloride 10 ml 07/22/19 22:07 Sodium Chloride Flush Syringe 10 Ml IV PRN PRN LINE FLUSH
[2019-07-24] MEDS: HEPARIN 5,000 UNIT/1 ML VIAL SUB-Q SCH ×3 (05:40→21:59)
[2019-07-24] MEDS: GABAPENTIN 100 MG CAP PO SCH ×3 (05:41→21:59)
--- NOTE | 2019-07-24 09:15 | Progress Note ---
Subjective Date of service: 07/24/19 Interval history: see my note about large old infarct on the CT this is stable see no bleed or edema MRI pending report on ECHO not as yet back Objective - Vital Sign Vital Signs - 12hr 07/23/19 07/23/19 07/24/19 22:00 23:32 00:00 Temperature 98.0 F Pulse Rate 70 70 Pulse Rate [ Apical] Respiratory 18 Rate Blood Pressure 121/77 O2 Sat by Pulse 95 98 Oximetry 07/24/19 07/24/19 07/24/19 01:00 04:02 08:12 Temperature 98.0 F Pulse Rate 90 Pulse Rate [ 80 Apical] Respiratory 18 18 22 Rate Blood Pressure 112/73 O2 Sat by Pulse 100 96 98 Oximetry 07/24/19 07/24/19 08:25 08:57 Temperature 98.6 F Pulse Rate 75 76 Pulse Rate [ Apical] Respiratory 18 Rate Blood Pressure 110/75 O2 Sat by Pulse 95 Oximetry - Laboratory Findings CBC and BMP: 07/23/19 04:34 07/23/19 04:34 Abnormal Lab Findings: Abnormal Labs 07/22/19 07/22/19 07/23/19 20:00 20:01 04:34 MCHC 35 H RDW 13.1 L Lymph % (Auto) 52.0 H 45.3 H Seg Neutrophils % 39.4 L PT INR POC Glucose 68 L HDL Cholesterol 07/23/19 07/23/19 04:34 04:34 MCHC RDW Lymph % (Auto) Seg Neutrophils % PT 11.8 L INR 0.86 L POC Glucose HDL Cholesterol 72 H
[2019-07-24] MEDS: DONEPEZIL 10 MG TAB PO SCH (09:45)
[2019-07-24] MEDS: levETIRAcetam 500 MG TAB PO SCH ×2 (09:45→21:59)
[2019-07-24] MEDS: ASPIRIN 325 MG TAB PO SCH (09:45)
[2019-07-24] MEDS: amLODIPine 5 MG TAB PO SCH (09:45)
--- NOTE | 2019-07-24 15:13 | Progress Note ---
Assessment and Plan Assessment and plan: 74-year-old -[place] female with known history of hemorrhagic stroke about a year ago with residual right-sided weakness was brought into the emergency room today for speech difficulty and what appeared to be left-sided weakness . Family members who were by the bedside indicates patient speech a ppeared more slurred today than usual. She was said to have had some left-sided weakness prior to reporting to the emergency room however they seem to have resolved upon arrival in the emergency room. She denies any fever or chills, no nausea vomiting but has had some mild headache. Upon arrival in the emergency room a CT scan of the head did not reveal new findings. She has been admitted to rule out a new CVA awaiting MRI AND ECHO AND PT cONTINUE ASA AND STATIN THERAPY, Will adjust meds in new stroke is noted. (1) CVA (cerebral vascular accident) Current Visit: Yes Status: Acute Plan to address problem: Continue supportive care right facial droop appears to have improved Dysarthria still persist Resume aspirin and statin therapy await neurology evaluation monitor neurological status. PT and OT Patient has known history of hemorrhagic stroke in 2018 with right hemiparesis and some facial droop We will schedule patient for carotid Doppler and also MRI of the brain. We will request neurology evaluation and recommendation. (2) Hypertension Current Visit: Yes Status: Acute Plan to address problem: Blood pressure stable. We will continue routine home medications and monitor vital signs closely. (3) DVT prophylaxis Current Visit: Yes Status: Acute Plan to address problem: Patient placed on subcutaneous heparin (4) Full code status Current Visit: Yes Status: Acute History Interval history: Patient seen and examined, no acute distress. No new complaint Hospitalist Physical - Physical exam Narrative exam: VITAL SIGNS: Reviewed. GENERAL: The patient appears normally developed, Vital signs as documented. HEAD: No signs of head trauma. EYES: Pupils are equal. Extraocular motions intact. EARS: Hearing grossly intact. MOUTH: Oropharynx is normal. NECK: No adenopathy, no JVD. CHEST: Chest with clear breath sounds bilaterally. No wheezes, rales, or rhonchi. CARDIAC: Regular rate and rhythm. S1 and S2, without murmurs, gallops, or rubs. VASCULAR: No Edema. Peripheral pulses normal and equal in all extremities. ABDOMEN: Soft, non tender and non distended. No rebound or guarding, and no masses palpated. Bowel Sounds normal. MUSCULOSKELETAL: Limited range of motion of all major joints. Extremities without clubbing, cyanosis or edema. NEUROLOGIC EXAM: Alert and oriented x 3 No focal sensory or strength deficits. Dysarthria. Follows commands. PSYCHIATRIC: Mood normal. SKIN: detial exam as documented in skin assessment - Constitutional Vitals: Temp Pulse Resp BP Pulse Ox 98.6 F 76 18 110/75 97 07/24/19 08:25 07/24/19 08:57 07/24/19 08:25 07/24/19 08:25 07/24/19 09:19 General appearance: Present: no acute distress, well-nourished, other (Right facial droop) Results - Labs CBC & Chem 7: 07/23/19 04:34 07/23/19 04:34 Labs: Laboratory Last Values WBC 6.5 K/mm3 (4.5-11.0) 07/23/19 04:34 RBC 4.03 M/mm3 (3.65-5.03) 07/23/19 04:34 Hgb 12.8 gm/dl (10.1-14.3) 07/23/19 04:34 Hct 36.9 % (30.3-42.9) 07/23/19 04:34 MCV 92 fl (79-97) 07/23/19 04:34 MCH 32 pg (28-32) 07/23/19 04:34 MCHC 35 % (30-34) H 07/23/19 04:34 RDW 13.2 % (13.2-15.2) 07/23/19 04:34 Plt Count 217 K/mm3 (140-440) 07/23/19 04:34 Lymph % (Auto) 45.3 % (13.4-35.0) H 07/23/19 04:34 [place] % (Auto) 5.2 % (0.0-7.3) 07/23/19 04:34 Eos % (Auto) 2.0 % (0.0-4.3) 07/23/19 04:34 Baso % (Auto) 1.1 % (0.0-1.8) 07/23/19 04:34 Lymph # 2.9 K/mm3 (1.2-5.4) 07/23/19 04:34 [place] # 0.3 K/mm3 (0.0-0.8) 07/23/19 04:34 Eos # 0.1 K/mm3 (0.0-0.4) 07/23/19 04:34 Baso # 0.1 K/mm3 (0.0-0.1) 07/23/19 04:34 Seg Neutrophils % 46.4 % (40.0-70.0) 07/23/19 04:34 Seg Neutrophils # 3.0 K/mm3 (1.8-7.7) 07/23/19 04:34 PT 11.8 Sec. (12.2-14.9) L 07/23/19 04:34 INR 0.86 (0.87-1.13) L 07/23/19 04:34 APTT 28.8 Sec. (24.2-36.6) 07/23/19 04:34 Thrombin Time 16.0 Sec. (15.1-19.6) 07/22/19 20:00 Sodium 144 mmol/L (137-145) 07/23/19 04:34 Potassium 3.6 mmol/L (3.6-5.0) 07/23/19 04:34 Chloride 105.3 mmol/L (98-107) 07/23/19 04:34 Carbon Dioxide 22 mmol/L (22-30) 07/23/19 04:34 Anion Gap 20 mmol/L 07/23/19 04:34 BUN 11 mg/dL (7-17) 07/23/19 04:34 Creatinine 0.7 mg/dL (0.7-1.2) 07/23/19 04:34 Estimated GFR > 60 ml/min 07/23/19 04:34 BUN/Creatinine Ratio 16 % 07/23/19 04:34 Glucose 87 mg/dL (65-100) 07/23/19 04:34 POC Glucose 68 (70-105) L 07/22/19 20:01 Calcium 9.2 mg/dL (8.4-10.2) 07/23/19 04:34 Troponin T < 0.010 ng/mL (0.00-0.029) 07/22/19 20:00 Triglycerides 77 mg/dL (2-149) 07/23/19 04:34 Cholesterol 147 mg/dL (50-199) 07/23/19 04:34 LDL Cholesterol Direct 69 mg/dL (50-130) 07/23/19 04:34 HDL Cholesterol 72 mg/dL (40-59) H 07/23/19 04:34 Cholesterol/HDL Ratio 2.04 % 07/23/19 04:34 Active Medications - Current Medications Current Medications: Generic Name Dose Route Start Last Admin Trade Name Freq PRN Reason Stop Dose Admin Acetaminophen 650 mg 07/22/19 22:07 Tylenol PO Q4H PRN Pain, Mild (1-3) Amantadine HCl 100 mg 07/23/19 10:00 07/24/19 09:45 Symmetrel PO 100 mg DAILY AQUILES Administration Amlodipine Besylate 5 mg 07/23/19 10:00 07/24/19 09:45 Amlodipine PO 5 mg DAILY AQUILES Administration Aspirin 325 mg 07/23/19 10:00 07/24/19 09:45 Aspirin PO 325 mg QDAY AQUILES Administration Atorvastatin Calcium 40 mg 07/23/19 23:15 07/23/19 23:12 Lipitor PO 40 mg QHS AQUILES Administration Bisacodyl 10 mg 07/22/19 22:07 Dulcolax AR QDAY PRN Constipation Donepezil HCl 10 mg 07/23/19 10:00 07/24/19 09:45 Aricept PO 10 mg DAILY AQUILES Administration Gabapentin 100 mg 07/23/19 06:00 07/24/19 13:20 Gabapentin PO 100 mg Q8HR AQUILES Administration Heparin Sodium (Porcine) 5,000 unit 07/23/19 06:00 07/24/19 13:19 Heparin SUB-Q 5,000 unit Q8HR AQUILES Administration Levetiracetam 1,000 mg 07/23/19 10:00 07/24/19 09:45 Keppra PO 1,000 mg BID AQUILES Administration Magnesium Hydroxide 30 ml 07/22/19 22:07 Milk Of Magnesia PO Q4H PRN Constipation Metoclopramide HCl 10 mg 07/22/19 22:07 Reglan PO Q6H PRN Nausea And Vomiting Morphine Sulfate 2 mg 07/22/19 22:07 Morphine IV Q4H PRN Pain, Moderate (4-6) Ondansetron HCl 4 mg 07/22/19 22:07 Zofran IV Q8H PRN Nausea And Vomiting Promethazine HCl 25 mg 07/22/19 22:07 Phenergan AR Q6H PRN Nausea And Vomiting Sodium Chloride 10 ml 07/23/19 10:00 07/24/19 09:46 Sodium Chloride Flush Syringe 10 Ml IV 10 ml BID AQUILES Administration Sodium Chloride 10 ml 07/22/19 22:07 Sodium Chloride Flush Syringe 10 Ml IV PRN PRN LINE FLUSH Nutrition/Malnutrition Assess - Dietary Evaluation Nutrition/Malnutrition Findings: Nutrition Notes Start: 07/23/19 13:06 Freq: Status: Active Protocol: Document 07/23/19 13:06 (Rec: 07/23/19 13:16 [id number]) Nutrition Notes Need for 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 R-sided weakness Labs/Tests Reviewed Pertinent Medications Reviewed Height 5 ft 2 in Weight 56.5 kg Usual Body Weight 59 kg [place] Body Weight (kg) 50.00 BMI 22.8 Subjective/Other Information Md consult for diet education and skin risk screen. Eddie score = 16. Pt friend was in room at visit feeding pt. Pt had consumed 50% of meal so far. Pt friend stated pt ate bfast this morning but was unsure of how much she ate, as she had not arrived yet. Pt eats 3 meals a day, but does not consume large quantities. Pt friend says pt does not have any wounds at the moment, but has in the past. RD provided education on low-na diet. Pt friend says pt usually does not eat high- sodium foods except for when she goes out to eat. Burn Absent Trauma Absent GI Symptoms None Current % PO Fair (50-74%) Minimum of two criteria No physical signs of malnutrition #1 Nutrition Diagnosis Increased nutrient needs ( specify in comment below) Comments: Protein Etiology immobility, h/o wounds As Evidenced by Signs and Symptoms Pt friend stated pt has had wounds frequently in the past Is patient on ventilator? No Is Patient Ambulatory and/or Out of Bed No REE-(Brilliant-St. Jeor-confined to bed) [phone] Calculation Used for Recommendations Brilliant-St Jeor Additional Notes Pro needs: 57-68g/day (1-1.2g/ kg BW) Fluid: 1 ml/kcal Nutrition Intervention Change Diet Order: continue cardiac diet Teaching Recipient Patient,Primary Caregiver Learning Readiness Good Teaching Methods Discussion,Handout Response to Teaching Verbalize understanding Education Handouts Provided AND's Low-Sodium Diet handout Barriers to Learning Cognitive/Verbal,Cognitive/ Written,Physical RD phone number provided Yes Patient aware of follow up options Yes Goal #1 Pt to consume at least 75% of energy and protein needs via PO intakes Goal #2 Pt to follow low-na diet Anticipated Discharge Needs: Low-na diet Follow-Up By: 07/26/19 Additional Comments F/u for stable intakes, need for ONS
[2019-07-25] MEDS: HEPARIN 5,000 UNIT/1 ML VIAL SUB-Q SCH ×2 (06:38→14:51)
[2019-07-25] MEDS: GABAPENTIN 100 MG CAP PO SCH ×2 (06:38→14:51)
[2019-07-25] MEDS: DONEPEZIL 10 MG TAB PO SCH (09:29)
[2019-07-25] MEDS: ASPIRIN 325 MG TAB PO SCH (09:29)
[2019-07-25] MEDS: levETIRAcetam 500 MG TAB PO SCH (09:29)
[2019-07-25] MEDS: amLODIPine 5 MG TAB PO SCH (09:35)
--- NOTE | 2019-07-25 15:33 | Vascular Lab Report ---
"DUPLEX DOPPLER ULTRASOUND CAROTID, BILATERAL INDICATION: stroke. FINDINGS: RIGHT CAROTID: Mild plaque Right CCA velocity: 69 cm/sec. Right ICA peak systolic velocity: 73 cm/sec. ICA/CCA PSV Ratio: 1.1. Right Vertebral Artery: Antegrade flow. LEFT CAROTID: Mild plaque Left CCA velocity: 60 cm/sec. Left ICA peak systolic velocity: 69 cm/sec. ICA/CCA PSV Ratio: 1.2. Left Vertebral Artery: Antegrade flow. IMPRESSION: 1. Right Internal Carotid Artery: Less than 50% diameter stenosis. 2. Left Internal Carotid Artery: Less than 50% diameter stenosis. Velocity criteria are extrapolated from diameter data as defined by the Society of Radiologists in Ul trasound Consensus Conference, Radiology 2003; 229;340-346. Degree of Stenosis (%) || ICA PSV (cm/sec) || Plaque estimate (%) || ICA/CCA PSV Ratio Normal <125 None <2.0 <50 <125 <50 <2.0 50-69 125-230 50 2.0-4.0 70 but less than 100 >230 50 >4.0 Near occlusion High, low, or none visible variable Total occlusion None visible; no lumen N/A Signer Name: Arnie Her MD Signed: 07/25/2019 3:28 PM Workstation Name: [id number]
--- NOTE | 2019-07-25 15:41 | Discharge Summary ---
Providers - Providers Date of Admission: 07/22/19 21:14 Attending physician: LA SALMERON MD 07/22/19 22:07 Consult to Case Management [CONS] Routine Services Needed at Discharge: Physical Therapy Notified:: case management Consult to Dietitian/Nutrition [CONS] Routine Physician Instructions: Reason For Exam: Reason for Consult: Nutrition Recommendations Reason for Consult: Diet education Occupational Therapy Evaluate and Treat [CONS] Routine Comment: Reason For Exam: Neuro deficits Physical Therapy Evaluation and Treat [CONS] Routine Comment: Reason For Exam: Neuro deficits 07/22/19 22:12 Speech Therapy Evaluation and Treat [CONS] Routine Reason For Exam: swallow eval 07/23/19 10:10 Consult to Physician [CONS] Routine Comment: Consulting Provider: SHASHA FERREIRA Physician Instructions: Reason For Exam: cva [facility] Reason for admission: cva Condition: Stable Hospital course: 74-year-old -[place] female with known history of hemorrhagic stroke about a year ago with residual right-sided weakness was brought into the emerge ncy room today for speech difficulty and what appeared to be left-sided weakness . Family members who were by the bedside indicates patient speech appeared more slurred today than usual. She was said to have had some left-sided weakness prior to reporting to the emergency room however they seem to have resolved upon arrival in the emergency room. She denies any fever or chills, no nausea vomiting but has had some mild headache. Upon arrival in the emergency room a CT scan of the head did not reveal new findings. She has been admitted to rule out a new CVA MRI was unremarkable patient was treated for TIA and not at baseline and was discharged CONTINUE ASA AND STATIN THERAPY, Will adjust meds in new stroke is noted. (1) TIA (2) Hypertension Disposition: [id number] HOME UNDER [facility] Time spent for discharge: 35 mins Core Measure Documentation - Palliative Care Palliative Care/ Comfort Measures: Not Applicable - Core Measures Any of the following diagnoses?: none Exam - Physical Exam Narrative exam: VITAL SIGNS: Reviewed. GENERAL: The patient appears normally developed, Vital signs as documented. HEAD: No signs of head trauma. EYES: Pupils are equal. Extraocular motions intact. EARS: Hearing grossly intact. MOUTH: Oropharynx is normal. NECK: No adenopathy, no JVD. CHEST: Chest with clear breath sounds bilaterally. No wheezes, rales, or rhonchi. CARDIAC: Regular rate and rhythm. S1 and S2, without murmurs, gallops, or rubs. VASCULAR: No Edema. Peripheral pulses normal and equal in all extremities. ABDOMEN: Soft, non tender and non distended. No rebound or guarding, and no masses palpated. Bowel Sounds normal. MUSCULOSKELETAL: Limited range of motion of all major joints. Extremities without clubbing, cyanosis or edema. NEUROLOGIC EXAM: Alert and oriented x 3 No focal sensory or strength deficits. Dysarthria. Follows commands. PSYCHIATRIC: Mood normal. SKIN: detial exam as documented in skin assessment - Constitutional Vitals: Temp Pulse Resp BP Pulse Ox 98.0 F 74 18 105/70 95 07/25/19 04:42 07/25/19 09:35 07/25/19 04:42 07/25/19 09:35 07/25/19 04:42 Plan Activity: advance as tolerated, fall precautions Diet: low fat, low salt, diabetic Special Instructions: record daily BP diary, record blood sugar diary Follow up with: SHASHA FERREIRA MD [Staff Physician] - 7 Days LOREAUVILLE WILLIAMSLOVE MD [Primary Care Provider] - 7 Days Prescriptions: AtorvaSTATin [Lipitor] 40 mg PO QHS #30 tablet Aspirin [Aspirin BABY CHEW TAB] 81 mg PO QDAY #30 tab.chew Other Discharge Orders: Occupational Therapy (Amb) Location: None Selected Physicial Therapy (Amb) Location: None Selected
--- NOTE | 2019-07-25 16:38 | Magnetic Resonance Report ---
NONENHANCED MR SCAN OF THE BRAIN: INDICATION / CLINICAL INFORMATION: Slurred speech and weakness TECHNIQUE: Multiplanar, multisequence noncontrast images of the brain were obtained. COMPARISON: CT scan of the brain from 07/22/2019 and 01/11/2018 FINDINGS: BRAIN / INTRACRANIAL CONTENTS: No acute ischemia, acute hemorrhage, mass effect, midline shift, or hy drocephalus. As seen in the CT scan, encephalomalacia is seen in the left basal ganglia from intrace rebral hemorrhage is seen in 01/11/[address] scan. In the gradient echo images, hemosiderin depositio n is seen around the periphery of this resolved hemorrhage, extending into left cerebral peduncle. Ch ronic wallerian degeneration is seen in the left corticospinal tract. Volume loss is seen in the cerebellar hemispheres and cerebellar vermis. No focal lesion is seen in t he cerebellar. No focal acute lesion is seen in the right cerebral hemisphere. CRANIOCERVICAL JUNCTION: No significant abnormality. VASCULAR FLOW-VOIDS: No significant abnormality. ORBITS: No significant abnormality of visualized orbits. SINUSES / MASTOIDS: No significant abnormality of visualized sinuses and mastoid air cells. ADDITIONAL FINDINGS: None. IMPRESSION: Left basal ganglia encephalomalacia I do not see an acute parenchymal lesion in the brain. Signer Name: Gloria Ko MD Signed: 07/25/2019 4:33 PM Workstation Name: [id number]
[2019-07-25 20:16] VITALS: BP 111/66
== END 2019-07-25 20:15 | disposition home health service (06) | DRG 65 ==
LOC: ED 19:39 → 4A 21:14
PROVIDERS: ADMIT Internal Medicine Geriatric Medicine; ATTEND Internal Medicine
DX: I63.9 Cerebral infarction, unspecified (principal); G81.91 Hemiplegia, unspecified affecting right dominant side; R47.81 Slurred speech; I10 Essential (primary) hypertension; R41.82 Altered mental status, unspecified; R29.810 Facial weakness; R29.712 NIHSS score 12; R47.1 Dysarthria and anarthria; Z79.899 Other long term (current) drug therapy
CPT/HCPCS: 36415; 70450; 70551; 80048; 80061; 82962; 84484; 85025; 85610; 85670; 85730; 93005; 93010; 93306; 93880; G0378; A9270-GY; J1644